=== PATIENT | female | born 1950 | race Caucasian/White ===

== ENCOUNTER → 2018-07-16 14:54 | Outpatient (CLI) | payer MEDICARE, OTHER, SELFPAY ==
--- NOTE | 2018-07-16 | DI.MRI.S_ITS ---
PROCEDURE: MR KNEE RT WO CON INDICATIONS: Medial right knee pain and instability TECHNIQUE: Noncontrast sagittal PD fast spin echo and T2 fast spin echo with fat saturation, sagittal 3-D FLASH with fat saturation; coronal T1 spin echo and PD fast spin echo with fat saturation, and axial PD fast spin echo with fat saturation through the knee. COMPARISON: None. FINDINGS: Image quality: Excellent. Menisci: Mild degenerative fraying of the free edges of the medial and lateral menisci. The medial and lateral menisci demonstrate otherwise normal morphology and internal signal. The meniscal root ligaments appear intact. Cruciate ligaments: The anterior and posterior cruciate ligaments appear intact. Medial structures: The medial collateral ligament appears intact. Visualized portions of the pes anserinus tendons appear normal. No abnormal bursal fluid. Lateral structures: The lateral collateral ligament, long and short heads of the biceps femoris tendon appear intact. The popliteus tendon appears normal. Iliotibial band appears normal. Anterior structures: The quadriceps and patellar tendons appear intact. Patellar alignment is normal. No femoral trochlear dysplasia or ventral trochlear prominence. No edema in the infrapatellar fat pad. Bones and cartilage: No bone marrow contusions or fractures. Mild tricompartmental periarticular osteophyte formation. 3 mm diameter region of full-thickness articular cartilage loss overlies the posterior weightbearing aspect of the lateral femoral condyle. Severe diffuse articular cartilage loss overlies the medial and lateral patellar facets. Subchondral cysts within the patellar apex, and lateral patellar facet are present. Mild ill-defined degenerative marrow edema within the anterior weightbearing aspect of the medial tibial plateau. Joint space: There is a small knee joint effusion and a small Kimbrough's cyst. Normal appearing synovial plicae are incidentally noted. IMPRESSION: 1. Degenerative fraying of the free edges of the medial lateral menisci. 2. Small focal full thickness articular cartilage defect overlying the lateral femoral condyle. Full-thickness articular cartilage loss overlying the patella. 3. Small knee joint effusion and Kimbrough's cyst. Dictated by: Reinier Lucero M.D. on 07/16/2018 at 15:58 Approved by: Reinier Lucero M.D. on 07/16/2018 at 16:01
== END ==
PROVIDERS: Visit Provider Family Medicine
DX: M25.561 Pain in right knee (principal); M23.91 Unspecified internal derangement of right knee; M25.461 Effusion, right knee; M71.21 Synovial cyst of popliteal space [Baker], right knee; M85.88 Other specified disorders of bone density and structure, other site; Z78.0 Asymptomatic menopausal state; Z87.891 Personal history of nicotine dependence
CPT/HCPCS: 73721; 77080

== ENCOUNTER → 2020-03-26 12:48 | Outpatient (CLI) | payer MEDICARE, OTHER, SELFPAY ==
--- NOTE | 2020-03-26 | DI.MG.S_ITS ---
BILATERAL DIGITAL SCREENING MAMMOGRAM 3D/2D WITH CAD: 03/26/2020 CLINICAL: Routine screening. Family history of breast cancer. Comparison is made to exams dated: 05/24/2012 mammogram and 08/17/2008 mammogram - [facility]. There are scattered fibroglandular elements in both breasts. Current study was also evaluated with a Computer Aided Detection (CAD) system. There are grouped calcifications in the right breast posterior depth superior region seen on the mediolateral oblique view only. There is an asymmetry in the left breast middle depth superior region seen on the mediolateral oblique view only. There is architectural distortion associated with the asymmetry. No other significant masses or calcifications are seen in either breast. IMPRESSION: INCOMPLETE: NEEDS ADDITIONAL IMAGING EVALUATION The grouped calcifications in the right breast posterior depth superior region seen on the mediolateral oblique view only are indeterminate. Spot magnification views are recommended. The asymmetry in the left breast middle depth superior region seen on the mediolateral oblique view only is indeterminate. Additional views with possible ultrasound are recommended. This exam was interpreted at Station ID: [id number]. NOTE: For mammograms, a report in lay terms will be sent to the patient. Approximately 15% of breast malignancies will not be visualized mammographically. In the management of a palpable breast mass, a negative mammogram must not discourage biopsy of a clinically suspicious lesion. Electronically Signed By: Tomasa Godinez M.D. lk/:03/26/2020 15:03:36 letter sent: Additional Imaging Needed ACR BI-RADS Category 0: Incomplete 3340F
== END ==
PROVIDERS: PCP Family Medicine; Referring Provider Family Medicine; Visit Provider Family Medicine
DX: Z12.31 Encounter for screening mammogram for malignant neoplasm of breast (principal); Z80.3 Family history of malignant neoplasm of breast
CPT/HCPCS: 77063; 77067

== ENCOUNTER → 2020-04-22 12:02 | Outpatient (CLI) | payer MEDICARE, OTHER, SELFPAY ==
--- NOTE | 2020-04-22 | DI.MG.S_ITS ---
BILATERAL DIGITAL DIAGNOSTIC MAMMOGRAM 3D/2D WITH ADDITIONAL VIEWS: 04/22/2020 CLINICAL: Additional evaluation requested from prior study. Comparison is made to exams dated: 03/26/2020 mammogram, 05/24/2012 mammogram, and 08/17/2008 mammogram - [facility]. There are scattered fibroglandular elements in both breasts. There are grouped round calcifications in the right axillary tail. There is suggestion of central lucency in these calcifications. The previously described asymmetry in the left breast middle depth superior region seen on the mediolateral oblique view only is no longer seen and is consistent with summation artifact. No other significant masses or calcifications are seen in either breast. IMPRESSION: PROBABLY BENIGN The grouped round calcifications in the right axillary tail resemble skin calcifications and are probably benign. The previously described left breast asymmetry disperses with additional views and is consistent with summation artifact. A follow-up right mammogram in 6 months is recommended to demonstrate stability of right breast calcifications. No mammographic evidence for malignancy in the left breast. Findings and recommendations were conveyed to the patient during today's evaluation. This exam was interpreted at Station ID: [id number]. NOTE: For mammograms, a report in lay terms will be sent to the patient. Approximately 15% of breast malignancies will not be visualized mammographically. In the management of a palpable breast mass, a negative mammogram must not discourage biopsy of a clinically suspicious lesion. Electronically Signed By: Khanh Moore M.D. aty/:04/22/2020 13:50:23 letter sent: Followup Recommended ACR BI-RADS Category 3: Probably benign [id number]
== END ==
PROVIDERS: PCP Family Medicine; Referring Provider Family Medicine; Visit Provider Family Medicine
DX: R92.8 Other abnormal and inconclusive findings on diagnostic imaging of breast (principal); R92.1 Mammographic calcification found on diagnostic imaging of breast
CPT/HCPCS: 77066; G0279

== ENCOUNTER → 2021-05-27 08:57 | Outpatient (CLI) | payer MEDICARE, OTHER, SELFPAY ==
[2021-05-27 21:51] LABS: COVID19 - ORCAS (NP or Nasal) Negative (Negative)
== END ==
PROVIDERS: PCP Family Medicine; Visit Provider Physician Assistant Medical
DX: Z20.822 Contact with and (suspected) exposure to COVID-19 (principal)
CPT/HCPCS: U0003

== ENCOUNTER → 2023-11-07 11:07 | Outpatient (CLI) | payer MEDICARE, OTHER, SELFPAY ==
--- NOTE | 2023-11-07 11:11 | DI.RAD.S_ITS ---
PROCEDURE: XR DEXA AXIAL SKELETON INDICATIONS: POSTMONEPAUSAL OSTEOPENIA COMPARISON: [facility], CR, XR DEXA AXIAL SKELETON, 07/16/2018, 16:12. FINDINGS: Lumbar Spine: Bone mineral density 0.773 g/cm2, T score -2.5. Left Hip: Bone mineral density 0.866 g/cm2, T score -0.6. Left Femoral Neck: Bone mineral density 0.729 g/cm2, T score -1.1. Right Hip: Bone mineral density 0.874 g/cm2, T score -0.6. Right Femoral Neck: Bone mineral density 0.725 g/cm2, T score -1.1. Fracture Risk Calculation (when applicable): 10-year fracture risk of a major osteoporotic fracture and a hip fracture will not be reported given presence of osteoporosis. (T score greater or equal to -1.0 to: NORMAL) (T score from -1.1 to -2.4: OSTEOPENIA) (T score less than or equal to -2.5: OSTEOPOROSIS) IMPRESSION: Osteoporosis Follow-up guidelines as follows: Osteoporosis: Consider a repeat DEXA and Vertebral Fracture Assessment (VFA) exam in 2 years or sooner if medically necessary, to reassess this patient's status. Osteopenia: Consider a repeat DEXA in 2-3 years to reassess this patient's status, or if there is a new clinical indication. Normal: Consider a repeat DEXA in 5 years or sooner, or if there is a new clinical indication. All treatment decisions require clinical judgment and consideration of individual patient factors, including patient preferences, comorbidities, previous drug use, risk factors not captured in the FRAX model (e.g., frailty, falls, vitamin D deficiency, increased bone turnover, interval significant decline in bone density ) and possible under- or over-estimation of fracture risk by FRAX. In addition, the NOF Guide recommends that FDA-approved medical therapies be considered in postmenopausal women and men age >= 50 years with a: * Hip or vertebral (clinical or morphometric) fracture * T-score of <=-2.5 at the spine or hip * Ten-year fracture probability by FRAX of >= 3% for hip fracture or >=20% for major osteoporotic fracture. People with diagnosed cases of osteoporosis or at high risk for fracture should have regular bone mineral density tests. For patients eligible for Medicare, routine testing is allowed once every 2 years. The testing frequency can be increased to one year for patients who have rapidly progressing disease, those who are receiving or discontinuing medical therapy to restore bone mass, or have additional risk factors. Dictated by: Khanh Moore M.D. on 11/07/2023 at 13:44 Approved by: Khanh Moore M.D. on 11/07/2023 at 13:47
== END ==
PROVIDERS: PCP Family Medicine; Referring Provider Family Medicine; Visit Provider Family Medicine
DX: M81.0 Age-related osteoporosis without current pathological fracture (principal)
CPT/HCPCS: 77080

== ENCOUNTER → 2024-02-20 13:01 | Outpatient (CLI) | payer MEDICARE, OTHER, SELFPAY ==
--- NOTE | 2024-02-20 13:03 | DI.RAD.S_ITS ---
PROCEDURE: XR FOREARM RT 2V INDICATIONS: ARM PAIN TECHNIQUE: 2 views of the forearm were acquired. COMPARISON: None. FINDINGS: Bones: There are no osseous abnormalities Joints: Severe 1st CMC degenerative change appreciated. The other joints are normal. 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 on 02/21/2024 at 9:39 Approved by: Hima Hugo M.D. on 02/21/2024 at 9:40
== END ==
LOC: RAD 13:02
PROVIDERS: PCP Family Medicine; Referring Provider Family Medicine; Visit Provider Family Medicine
DX: M79.631 Pain in right forearm (principal)
CPT/HCPCS: 73090

== ENCOUNTER → 2024-07-21 10:43 | Outpatient (CLI) | payer MEDICARE, OTHER, SELFPAY ==
--- NOTE | 2024-07-21 10:44 | DI.MG.S_ITS ---
MM screening mammo BI: 07/21/2024. BI-RADS: 1 CLINICAL: 73-year old female for bilateral screening mammogram. Tyrer-Cuzick lifetime risk of 6.4%. Current reported family history of breast cancer: mother. PRIOR EXAMS 04/22/2020, 03/26/2020. MAMMOGRAPHY TECHNIQUE: 2D and 3D (tomosynthesis) digital mammographic views obtained, with additional images as needed for full coverage. Current study was also evaluated with a Computer Aided Detection (CAD) system. DENSITY B. There are scattered areas of fibroglandular density. MAMMOGRAPHY FINDINGS Bilateral: No suspicious mass, asymmetry, microcalcification, or other abnormality seen. IMPRESSION: * No evidence of malignancy. RECOMMENDATIONS Bilateral * Annual screening mammography. OVERALL ASSESSMENT CATEGORY BI-RADS-1: Negative. The [employer] recommends annual screening mammography beginning at age 40 for women with average risk of breast cancer. ELECTRONICALLY SIGNED: Maxx Gonzalez M.D. on 07/21/2024 at 06:09:15 PM PT Interpreting Station ID: [id number]
== END ==
PROVIDERS: PCP Family Medicine; Referring Provider Family Medicine; Visit Provider Family Medicine
DX: Z12.31 Encounter for screening mammogram for malignant neoplasm of breast (principal); Z80.3 Family history of malignant neoplasm of breast
CPT/HCPCS: 77063; 77067

== ENCOUNTER → 2024-12-10 11:25 | Outpatient (CLI) | payer MEDICARE, OTHER, SELFPAY ==
--- NOTE | 2024-12-10 11:26 | DI.MRI.S_ITS ---
PROCEDURE: MR SHOULDER LT WO CON INDICATIONS: Other enthesopathies, not elsewhere classified TECHNIQUE: Noncontrast oblique coronal T2 fast spin echo with fat saturation, oblique sagittal T1 spin echo and T2 fast spin echo with fat saturation, axial T1 spin echo and T2 fast spin echo with fat saturation through the shoulder. COMPARISON: None. FINDINGS: Image quality: Excellent. Rotator cuff: Moderate T2 signal elevation diffusely throughout the supraspinatus and infraspinatus tendons at the humeral insertion sites extending the musculotendinous junctions, indicating tendinopathy. Superimposed low-grade intrasubstance and bursal surface tearing of the anterior, mid, and posterior supraspinatus tendon, as well as the anterior infraspinatus tendon at the humeral insertion site extending the musculotendinous junction. Subscapularis and teres minor tendons are intact. No rotator cuff atrophy. Bones and bursae: No bone marrow contusions or fractures. Subchondral cyst formation within the humeral head and glenoid. Moderate ill-defined, presumably degenerative marrow edema within the humeral head. Moderate glenohumeral and acromioclavicular joint degeneration. The acromion demonstrates conventional anatomy, without an os acromiale. No pathologic subacromial-subdeltoid or subcoracoid bursal fluid is present. Capsule and soft tissues: Large glenohumeral joint effusion with multiple intra-articular loose bodies. Labrum demonstrates diffuse degenerative tearing. The long head of the biceps tendon demonstrates normal location and morphology. The rotator interval appears normal, without fibrosis. The coracohumeral ligament is normal in thickness. IMPRESSION: 1. 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 No full-thickness rotator cuff tear. 2. Acromioclavicular and glenohumeral joint osteoarthritis. 3. Glenoid labral tearing. 4. Glenohumeral joint effusion with intra-articular loose bodies Dictated by: Reinier Lucero M.D. on 12/10/2024 at 12:48 Approved by: Reinier Lucero M.D. on 12/10/2024 at 12:49
== END ==
LOC: MRI 11:26
PROVIDERS: PCP Family Medicine; Referring Provider Family Medicine; Visit Provider Family Medicine
DX: M77.8 Other enthesopathies, not elsewhere classified (principal); M75.112 Incomplete rotator cuff tear or rupture of left shoulder, not specified as traumatic; M19.012 Primary osteoarthritis, left shoulder; S43.432A Superior glenoid labrum lesion of left shoulder, initial encounter; M25.412 Effusion, left shoulder; M24.012 Loose body in left shoulder
CPT/HCPCS: 73221